=== PATIENT | male | born 2000 | race Caucasian/White ===

== ENCOUNTER 2022-01-08 18:15 | Emergency (ER) | payer BC ==
[~2022-01-08] VITALS: Ht 188 cm; Wt 78.7 kg
--- OUTSIDE RECORDS SUMMARY | 2022-01-08 18:18 | XMS ---
PreManage Notification: MARGARET GALVIN [employer] Events No recent Security Events currently on file CRITERIA MET - JIMMYP CARE PROVIDERS HARMAN DELACRUZ [facility] Current PHONE: Unknown Mir has no Care Guidelines for this patient. ESri VISIT COUNT (12 MO.) 1 RUPERTO Lujan TOTAL 1 NOTE: Visits indicate total known visits. ED/UCC VISIT TRACKING (12 MO.) 01/08/2022 18:16 RUPERTO Oates OR TYPE: Emergency COMPLAINT: - BACK PAIN INPATIENT VISIT TRACKING (12 MO.) No inpatient visits to display in this time frame [email or web address]
[2022-01-08] MEDS ORDERED: TRAMADOL HCL50 MG PO (18:51)
[2022-01-08] MEDS ORDERED: TYLENOL EXTRA500 MG PO (18:51)
[2022-01-08] MEDS ORDERED: IBUPROFEN200 M1 PO (18:52)
== END 2022-01-08 20:17 | disposition home or self-care (01) ==
LOC: ED 18:15
DX: G89.29 Other chronic pain (principal); M54.50 Low back pain, unspecified; Z88.8 Allergy status to other drugs, medicaments and biological substances
CPT/HCPCS: 99283

== ENCOUNTER 2022-12-12 13:47 | Emergency (ER) | payer BC ==
[~2022-12-12] VITALS: Ht 188 cm; Wt 78.5 kg
[~2022-12-12 13:47] MED LIST: IBUPROFEN200 M1 PO; TRAMADOL HCL50 MG PO; TYLENOL EXTRA500 MG PO
[2022-12-12] MEDS ORDERED: NEURONTIN300 MG PO (14:21)
[2022-12-12] MEDS ORDERED: HYDROCODON-ACE1 EA10 PO (14:21)
[2022-12-12] MEDS ORDERED: CYCLOBENZAPRINE10 MG PO (14:21)
== END 2022-12-12 15:03 | disposition home or self-care (01) ==
LOC: ED 13:47
DX: M54.16 Radiculopathy, lumbar region (principal); Z88.8 Allergy status to other drugs, medicaments and biological substances; Z79.899 Other long term (current) drug therapy
CPT/HCPCS: 99283; A9270